=== PATIENT | male | born 1975 | race Caucasian/White ===

== ENCOUNTER 2016-08-16 07:26 | Emergency (ER) | payer SELFPAY ==
[2016-08-16 07:39] VITALS: TEMP 98.9
[2016-08-16] MEDS ORDERED: IBUPROFEN 800 MG TAB PO ONE (08:05)
[2016-08-16] MEDS ORDERED: OXYCODONE HCL 5 MG TABLET PO ONE (08:05)
--- NOTE | 2016-08-16 08:07 | EDPRACDOC ---
- General Information Chief Complaint: Male Urogenital Problems Stated Complaint: MALE AREA PAIN Time Seen by Provider: 08/16/16 08:04 Mode Of Arrival: Car Home Medications: Home Medications Levofloxacin [Levaquin] 750 mg PO DAILY #10 tablet 08/16/16 Oxycodone Immediate Release [Oxycodone Immediate Release (OxyIR)] 5 - 15 mg PO Q4H PRN #14 tab 08/16/16 Allergies/Adverse Reactions: Allergies Allergy/AdvReac Type Severity Reaction Status Date / Time acetaminophen [From Tylenol] Allergy Severe Hives* Verified 08/16/16 07:39 bee pollen Allergy Anaphylaxis Verified 08/16/16 08:06 * - History of Present Illness HPI: RIGHT TESTICULAR PAIN FOR 12 HOURS. SPONTANEOUS ONSET, NO TRAUMA NOT RELATED SEXUAL INTERCOURSE NO DYSURIA URGENCY OR FREQUENCY NO BACK PAIN NO FLANK PAIN. NEVER HAD THIS BEFORE. NO SWELLING OR REDNESS OF THE SCROTUM. Onset: LAST PM ED Past Medical History - History Reviewed Yes Nurses notes reviewed and agree except as marked - Patient Medical History Musculoskeletal History: Reports: Rheumatoid Arthritis Psychological History: Denies: Depression Systemic History: Denies: Cancer Additional Past Medical History: [facility] ED VISITS FOR VARIOUS PAIN SYNDROMES - Family Medical History Reports: Cancer (FATHER; TYPE [facility]). Denies: Hypertension, Diabetes, Stroke, Cardiac Disorders - Social Medical History Smoking Status: Heavy tobacco smoker (5 or more cigarettes/day or daily pipe/ cigar) EDM Review of Systems - Review of Systems ROS Negative Except as Marked: Yes All systems reviewed and were negative except as marked - Physical Exam Constitutional: No apparent distress, Alert Last recorded Vital Signs: Last Vital Signs Temp 98.9 F 08/16/16 07:35 Pulse 88 08/16/16 07:35 Resp 18 08/16/16 07:35 BP 118/69 08/16/16 07:35 Pulse Ox 97 08/16/16 07:35 Oxygen Pulse Oxygen Saturation 97 O2 Device Room Air Oxygen Flow Rate Fraction of Inspired Oxygen ( FIO2) - HEENT Head: Normal Oropharynx: Normal - Respiratory/Cardiovascular Respiratory: Normal - CTA - GI Auscultation: Normal Palpation: Normal Tenderness: Non tender Samuel's Sign: Negative - Male Genitalia: Bilateral: Normal Scrotum: Bilateral: Normal Hernia: Bilateral: Normal - Musculoskeletal Back: Normal Extremities: Normal - Integumentary Skin: Normal - Departure Disposition: Home Condition: Stable Final Diagnosis: Epididymitis, right Instructions: Epididymo-orchitis (ED) Education/Counseling Given To: Patient Education/Counseling Given Regarding: Diagnosis, Treatment Referrals: None,No Provider [Primary Care Provider] - One Week Prescriptions: New Levofloxacin [Levaquin] 750 mg PO DAILY #10 tablet Oxycodone Immediate Release [Oxycodone Immediate Release (OxyIR)] 5 - 15 mg PO Q4H PRN #14 tab PRN Reason: Pain
[2016-08-16 08:40] LABS: LEUKOCYTES/URINE NEG (NEGATIVE); NITRITE/URINE NEG (NEGATIVE); RBC/URINE 0-2 (0-2); URINE OCCULT BLOOD NEG (NEG/TRACE); WBC/URINE 0-2 (0-2)
--- NOTE | 2016-08-16 09:28 | DIRPT ---
CLINICAL DATA: 41-year-old male with right testicular pain since 8 p.m. last night EXAM: SCROTAL ULTRASOUND DOPPLER ULTRASOUND OF THE TESTICLES TECHNIQUE: Complete ultrasound examination of the testicles, epididymis, and other scrotal structures was performed. Color and spectral Doppler ultrasound were also utilized to evaluate blood flow to the testicles. COMPARISON: None. FINDINGS: Right testicle Measurements: 4.5 x 2.5 x 3.4 cm. No mass or microlithiasis visualized. Left testicle Measurements: 4.5 x 2.2 x 3.5 cm. No mass or microlithiasis visualized. Right epididymis: Compared to the contralateral and asymptomatic left epididymis, the right epididymis appears heterogeneous and slightly hypervascular. Left epididymis: Normal in size and appearance. Incidental note is made of a small 3 mm anechoic simple epididymal cyst versus spermatocele. Hydrocele: None visualized. Varicocele: Small left-sided varicocele. Pulsed Doppler interrogation of both testes demonstrates normal low resistance arterial and venous waveforms bilaterally. IMPRESSION: 1. No evidence for testicular torsion at this time. 2. Heterogeneous and slightly hypervascular right epididymis concerning for acute epididymitis. 3. Incidental note is made of a 3 mm simple epididymal cyst versus spermatocele in the head of the left epididymis. 4. Small left-sided varicocele. Electronically Signed By: Gurpreet Kaur M.D. On: 08/16/2016 09:25
[2016-08-16 09:54] VITALS: BP 120/79; PULSE 72
== END 2016-08-16 09:54 | disposition home or self-care (01) ==
LOC: ED 07:26
DX: N45.1 Epididymitis (principal)
CPT/HCPCS: 76870; 81001; 93975; 99284; J3490